=== PATIENT | male | born 1945 | race Caucasian/White ===

== ENCOUNTER 2021-11-21 06:00 | Outpatient (RCR) | payer BC, SELFPAY | END 2021-12-13 23:59 | disposition home or self-care (01) | LOC: TPT 06:00 | PROVIDERS: Visit Provider Neurological Surgery | DX: M54.2 Cervicalgia (principal) | CPT/HCPCS: 97110; 97162 ==

== ENCOUNTER 2021-11-21 12:39 | Outpatient (CLI) | payer BC, SELFPAY ==
--- NOTE | 2021-11-21 12:49 | XRR_ITS ---
PROCEDURE INFORMATION: Exam: XR Cervical Spine Exam date and time: 11/21/2021 1:01 PM Age: 76 years old Clinical indication: Pain and condition or disease; Other: Osteoarthritis; Cervicalgia; Additional info: Osteoarthritis/cervicalgia TECHNIQUE: Imaging protocol: Radiologic exam of the cervical spine. Views: 2 or 3 views. COMPARISON: No relevant prior studies available. FINDINGS: Bones/joints: No fracture, malalignment or acute abnormalities are seen in the cervical spine. Chronic degenerative changes are present with disc space narrowing sclerosis and osteophytes especially from C3-C7. Soft tissues: Unremarkable. XR/XR cervical spine 3V* [id number] IMPRESSION: 1. No acute abnormality. 2. Chronic degenerative disease especially from C3-C7.
== END 2021-11-21 12:40 | disposition home or self-care (01) ==
LOC: RAD 12:44
PROVIDERS: Visit Provider Internal Medicine
DX: M19.90 Unspecified osteoarthritis, unspecified site (principal); M50.31 Other cervical disc degeneration, high cervical region
CPT/HCPCS: 72040

== ENCOUNTER 2021-12-14 06:00 | Outpatient (RCR) | payer BC, SELFPAY | END 2022-01-12 23:59 | disposition home or self-care (01) | LOC: TPT 06:00 | PROVIDERS: Visit Provider Neurological Surgery | DX: M54.2 Cervicalgia (principal) | CPT/HCPCS: 97110 ==

== ENCOUNTER 2022-03-12 09:39 | Outpatient (CLI) | payer BC, SELFPAY ==
--- NOTE | 2022-03-12 09:53 | MR_ITS ---
WS: [id number] MRI CERVICAL SPINE NONCONTRAST HISTORY: CERVICALGIA COMPARISON: Cervical radiographs 11/21/2021 Technique: Multiplanar, multisequence noncontrast imaging of the cervical spine. C4 retrolisthesis by 2 mm. C7 anterolisthesis by 3 mm. No acute fractures or marrow edema. Moderate disc space narrowing and desiccation with osteophytosis throughout the cervical spine. Most significant disc space narrowing is at C4-5. Craniocervical junction, C1 and C2 relationship, odontoid process and soft tissues are normal. C2-C3: Mild osteophytic ridging and disc space narrowing. No stenosis. C3-C4: Mild annular disc bulging and mild osteophytosis and facet arthritis. No significant stenosis. C4-C5: Moderate osteophytic ridging and annular disc bulging with facet joint arthritis. There is mil d disc osteophyte encroachment upon the ventral thecal sac resulting in mild central stenosis. Very m ild foraminal stenosis. C5-C6: Mild osteophytic ridging and annular disc bulging. Small osteophyte encroaches into the proxim al LEFT foramen. Very minimal LEFT foraminal narrowing. C6-C7: Diffuse osteophytic ridging with moderate facet joint arthritis. There is also mild annular di sc bulging. Mild central and bilateral foraminal stenosis. Slightly greater encroachment into the LEF T foramen. C7-T1: Anterolisthesis of C7. Mild unroofing of the disc. Shallow central disc protrusion encroaches and contacts the ventral thecal sac. Moderate central and bilateral foraminal stenosis. Bilateral fac et joint arthritis. Paraspinal soft tissue are normal. MR/MR cervical spin wo con* [id number] IMPRESSION: 1. Moderate cervical spondylosis. Most significant degenerative disc disease a t C4-5. 2. Moderate central and bilateral foraminal stenosis at C7-T1 due to combinati on of disc disease, central disc protrusion and facet arthritis. 3. Mild central and foraminal stenosis at C4-5. 4. Mild central and bilateral foraminal stenosis at C6-7 slightly greater sten osis on the LEFT. 5. Mild anterolisthesis of C4 and C7.
== END 2022-03-12 09:40 | disposition home or self-care (01) ==
LOC: RAD 09:43
PROVIDERS: Visit Provider Neurological Surgery
DX: M47.812 Spondylosis without myelopathy or radiculopathy, cervical region (principal); M54.12 Radiculopathy, cervical region; M50.321 Other cervical disc degeneration at C4-C5 level; M48.02 Spinal stenosis, cervical region; M48.03 Spinal stenosis, cervicothoracic region
CPT/HCPCS: 72141

== ENCOUNTER 2023-02-22 08:41 | Outpatient (CLI) | payer OTHER, SELFPAY ==
[2023-02-22 09:08] VITALS: BMI 29.2
--- NOTE | 2023-02-22 09:09 | ECG_ITS ---
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 Interpretive Statements NAME OF STUDY: LEXISCAN SESTAMIBI STRESS TEST INDICATION: Chest Pain; Dyspnea on Exertion PROCEDURE: At the baseline, the EKG revealed normal sinus rhythm with incomplete right bundle branch block pattern.. The baseline heart was 74 bpm with a blood pressue of 153/100 mm of Hg Lexiscan was infused over a period of 20 seconds. A total of 0.4 milligrams of Lexiscan was infused. The stress phase was continued for a total of 5 minutes. Heart rate at the end of the stress phase was 84 bpm with a blood pressure 144/86 mm of Hg. The EKG at the peak infusion revealed no significant changes. Sestamibi was injected 20 seconds after the Lexiscan infusion. Heart rate at the end of the recovery phase was 89 bpm with a blood pressure of 148/90 mm of Hg. CONCLUSION: 1. No significant EKG changes with the LexiScan infusion 2. No LexiScan induced chest pain or cardiac arrhythmia 3. Normal blood pressure and heart rate response 4. Sestamibi/sestamibi perfusion scan pending; see separate report. Electronically Signed On 02-23-2023 12:58:32 DIE HOLDER by Sandra Fam M.D. [email or web address]
--- NOTE | 2023-02-22 09:09 | NMCV_ITS ---
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 Images obtained in supine and prone position. SPECT RESULTS Technical Quality: Excellent Raw Data Analysis: Normal Image Corrections: No attenuation or motion correction applied Summed Stress Score: 4 Summed Rest Score: 0 Summed Difference Score: 4 PERFUSION FINDINGS Moderately decreased tracer uptake in the basal inferior and mid inferolateral regions with some significant reversibility, with respect to supine imaging. However with respect to prone imaging, no significant reversibility was noted FUNCTIONAL RESULTS (calculated via Gated SPECT) Stress Image LV EF (%): 78 Stress EDV (mL):82 TID: 0.93 Stress ESV (mL):18 FUNCTIONAL FINDINGS: Segmental wall motion analysis revealing no gross wall motion abnormalities IMPRESSIONS 1. Myocardial perfusion imaging revealing small areas of moderately decreased tracer uptake in the inferior and inferolateral regions with reversibility may suggest ischemia in the distribution of the right coronary artery/circumflex artery. However because of inconsistency with the supine imaging prone imaging, the reliability of this finding is questionable.. Clinical correlation is recommended 2. Normal LV ejection fraction 78%. 3. LV wall motion analysis revealing no gross wall motion abnormalities. 4. Normal LV volume No similar previous studies are available for comparison Dr Sandra Fam MD FAC (Electronically Signed) Final Date: 22 February 2023 13:50 S
[2023-02-22] MEDS: regadenoson 0.4 Mg/5 ml Syringe IVP (10:05)
[2023-02-22 10:22] VITALS: BP 116/84; PULSE 80
== END 2023-02-22 08:42 | disposition home or self-care (01) ==
LOC: CDL 08:42
PROVIDERS: Visit Provider Emergency Medicine Emergency Medical Services
DX: R07.9 Chest pain, unspecified (principal)
CPT/HCPCS: 36415; 78452; 93017; 96374; A9500; J2785

== ENCOUNTER → 2023-07-18 10:34 | Outpatient (BNVA) | payer OTHER, SELFPAY | PROVIDERS: Referring Provider Emergency Medicine Emergency Medical Services; Visit Provider Nurse Practitioner Family | DX: L81.4 Other melanin hyperpigmentation (principal); D22.5 Melanocytic nevi of trunk; L82.1 Other seborrheic keratosis; D36.12 Benign neoplasm of peripheral nerves and autonomic nervous system, upper limb, including shoulder; I78.8 Other diseases of capillaries; L57.8 Other skin changes due to chronic exposure to nonionizing radiation | CPT/HCPCS: 99203 ==

== ENCOUNTER → 2024-06-16 09:28 | Outpatient (BNVA) | payer OTHER, SELFPAY | PROVIDERS: Visit Provider Podiatrist Foot & Ankle Surgery | DX: I73.9 Peripheral vascular disease, unspecified (principal); L60.3 Nail dystrophy; M79.671 Pain in right foot; M79.672 Pain in left foot; G62.9 Polyneuropathy, unspecified; M77.31 Calcaneal spur, right foot; M77.32 Calcaneal spur, left foot | CPT/HCPCS: 11721; 73630; 99203 ==

== ENCOUNTER → 2024-08-18 09:26 | Outpatient (BNVA) | payer OTHER, SELFPAY | PROVIDERS: PCP Nurse Practitioner Family; Visit Provider Podiatrist Foot & Ankle Surgery | DX: I73.9 Peripheral vascular disease, unspecified (principal); L60.8 Other nail disorders; L60.3 Nail dystrophy; G62.9 Polyneuropathy, unspecified; M77.30 Calcaneal spur, unspecified foot | CPT/HCPCS: 11721; 99213 ==

== ENCOUNTER 2024-09-10 20:00 | Outpatient (CLI) | payer OTHER, SELFPAY | END 2024-09-10 20:01 | disposition home or self-care (01) | LOC: SLEEP 23:03 | PROVIDERS: PCP Nurse Practitioner Family; Referring Provider Nurse Practitioner Family; Visit Provider Internal Medicine Pulmonary Disease | DX: G47.33 Obstructive sleep apnea (adult) (pediatric) (principal); G47.36 Sleep related hypoventilation in conditions classified elsewhere | CPT/HCPCS: 95810 ==

== ENCOUNTER → 2024-10-20 09:11 | Outpatient (BNVA) | payer OTHER, SELFPAY | PROVIDERS: PCP Family Medicine Geriatric Medicine; Visit Provider Podiatrist Foot & Ankle Surgery | DX: I73.9 Peripheral vascular disease, unspecified (principal); L60.3 Nail dystrophy; G62.9 Polyneuropathy, unspecified | CPT/HCPCS: 11721 ==

== ENCOUNTER 2024-10-27 20:00 | Outpatient (CLI) | payer OTHER, SELFPAY | END 2024-10-27 20:01 | disposition home or self-care (01) | LOC: SLEEP 22:27 | PROVIDERS: PCP Family Medicine Geriatric Medicine; Visit Provider Internal Medicine Pulmonary Disease | DX: G47.33 Obstructive sleep apnea (adult) (pediatric) (principal) | CPT/HCPCS: 95811 ==

== ENCOUNTER → 2024-12-22 08:31 | Outpatient (BNVA) | payer OTHER, SELFPAY | PROVIDERS: PCP Family Medicine Geriatric Medicine; Visit Provider Podiatrist Foot & Ankle Surgery | DX: E11.42 Type 2 diabetes mellitus with diabetic polyneuropathy (principal); L60.3 Nail dystrophy; G62.9 Polyneuropathy, unspecified; I73.9 Peripheral vascular disease, unspecified | CPT/HCPCS: 11721 ==

== ENCOUNTER 2024-12-23 08:24 | Outpatient (CLI) | payer OTHER, SELFPAY ==
--- NOTE | 2024-12-23 08:28 | MR_ITS ---
WS: [id number] MRI BRAIN WITH AND WITHOUT CONTRAST HISTORY: VERTIGO/DIZZINESS COMPARISON: None available. TECHNIQUE: Multiplanar imaging performed through the brain with MultiHance 20 ml's IV. Normal diffusion imaging. No infarct. There are numerous T2 and scattered FLAIR signal hyperintensities throughout the white matter from small vessel disease. No prior infarct. No lacunar infarcts. No hemorrhage. Mild cerebral and cerebellar atrophy. No susceptibility artifacts or prior lacunar infarcts. Ventricles and extra-axial spaces are normal. Clivus and pituitary gland are normal. Visualized posterior fossa and brainstem are also normal. Postcontrast images are negative for masses or vascular malformations. Dural venous sinuses are normal. Paranasal sinuses: Well aerated with no significant disease. Mastoid air cells: Normal. Calvarium and scalp: Normal. MR/MR head wo/w con [id number] IMPRESSION: 1. No acute infarcts or hemorrhage. 2. Mild cerebral and cerebellar atrophy with moderate small vessel disease. 3. No enhancing mass or vascular malformation. 4. Negative posterior fossa.
== END 2024-12-23 08:25 | disposition home or self-care (01) ==
LOC: RAD 08:24
PROVIDERS: PCP Family Medicine Geriatric Medicine; Visit Provider Family Medicine Geriatric Medicine
DX: R42 Dizziness and giddiness (principal); G56.03 Carpal tunnel syndrome, bilateral upper limbs
CPT/HCPCS: 70553

== ENCOUNTER → 2025-01-11 11:16 | Outpatient (BNVA) | payer OTHER, SELFPAY | PROVIDERS: PCP Family Medicine Geriatric Medicine; Visit Provider Dermatology | DX: L72.0 Epidermal cyst (principal); L81.4 Other melanin hyperpigmentation; D48.5 Neoplasm of uncertain behavior of skin | CPT/HCPCS: 11102; 99213 ==

== ENCOUNTER 2025-02-09 08:58 | Outpatient (CLI) | payer OTHER, SELFPAY ==
--- NOTE | 2025-02-09 09:04 | MR_ITS ---
WS: [id number] MR CERVICAL SPINE WO/W COMPARISON: 2021 HISTORY: BILATERAL FINGER NUMBNESS TECHNIQUE: Sagittal T1, T2 and T2 inversion recovery; axial T2, T2 gradient and fiesta. Post gadolinium imaging with fat saturation technique. FINDINGS:Straightening of the normal cervical lordosis. Cord signal is normal. Moderate spondylitic changes. Enhancing lesion partially visualized in the LEFT T3-4 neural foramen. Enhancement suspicious for nerve sheath tumor or schwannoma. This measures approximately 8 mm. Recommend further evaluation with thoracic spine MRI C2-3: Mild facet arthropathy. Spinal canal and foramen are patent. C3-4: Mild disc bulge with endplate ridging. Mild LEFT bony foraminal narrowing. Mild facet arthropathy. C4-5: Disc osteophyte complex with endplate ridging. Indentation the RIGHT ventral cervical cord. Moderate central canal stenosis. Moderate bilateral bony foraminal narrowing. Mild facet arthropathy. C5-6: Disc osteophyte complex eccentric to the LEFT. Mild LEFT and no significant RIGHT foraminal narrowing. Mild facet arthropathy. Uncovertebral joint hypertrophy. C6-7: Disc osteophyte complex with slight effacement of the ventral thecal sac. Mild LEFT greater than RIGHT foraminal narrowing. Mild central canal stenosis. Mild facet arthropathy. C7-T1: Grade 1 anterolisthesis. Moderate central canal stenosis with disc osteophyte complex. Moderate LEFT and mild RIGHT bony foraminal narrowing. Grade 1 anterolisthesis T1 on T2. MR/MR cervical spine wo/w [id number] IMPRESSION: Overall no significant changes since 2021 1. Straightening of the normal cervical lordosis. Moderate spondylitic change s similar to previous. 2. Moderate central canal stenosis C4-5 with a RIGHT paracentral disc osteophy te protrusion with slight indentation on the cervical cord. This appears stable compared to previous. 3. Moderate central canal stenosis C7-T1 appears stable compared to previous. 4. Moderate bony foraminal narrowing bilateral C4-5 LEFT C5-C6 and LEFT C7-T1 appears stable compared to previous. 5. Stable mild central canal stenosis C5-C6 and C6-C7. 6. Partially visualized enhancing lesion at LEFT T3-4 extending into the neura l foramen only partially visualized suspicious for nerve sheath tumor or schwan noma with enhancement. Recommend further evaluation with thoracic spine MRI wit hout and with gadolinium
[2025-02-09] MEDS: gadobenate dimeglumine 20 mL vial IV (09:47)
== END 2025-02-09 08:59 | disposition home or self-care (01) ==
LOC: RAD 08:59
PROVIDERS: PCP Family Medicine Geriatric Medicine; Visit Provider Family Medicine Geriatric Medicine
DX: Z01.89 Encounter for other specified special examinations (principal); M48.02 Spinal stenosis, cervical region; M25.78 Osteophyte, vertebrae; M50.221 Other cervical disc displacement at C4-C5 level; M48.03 Spinal stenosis, cervicothoracic region; R93.89 Abnormal findings on diagnostic imaging of other specified body structures; M47.892 Other spondylosis, cervical region; M47.812 Spondylosis without myelopathy or radiculopathy, cervical region; M43.13 Spondylolisthesis, cervicothoracic region; M43.14 Spondylolisthesis, thoracic region
CPT/HCPCS: 72156

== ENCOUNTER → 2025-02-25 08:03 | Outpatient (BNVA) | payer OTHER, SELFPAY | PROVIDERS: PCP Family Medicine Geriatric Medicine; Visit Provider Podiatrist Foot & Ankle Surgery | DX: E11.8 Type 2 diabetes mellitus with unspecified complications (principal); L60.3 Nail dystrophy; G62.9 Polyneuropathy, unspecified; I73.9 Peripheral vascular disease, unspecified; B35.3 Tinea pedis | CPT/HCPCS: 11721; 99213 ==

== ENCOUNTER → 2025-03-23 09:58 | Outpatient (BNVA) | payer OTHER, SELFPAY | PROVIDERS: PCP Family Medicine Geriatric Medicine; Referring Provider Family Medicine Geriatric Medicine; Visit Provider Nurse Practitioner Family | DX: M48.02 Spinal stenosis, cervical region (principal); M79.2 Neuralgia and neuritis, unspecified | CPT/HCPCS: 99204 ==